=== PATIENT | male | born 1955 | race Caucasian/White ===

== ENCOUNTER 2021-11-30 14:44 | Inpatient (IN) ==
[2021-11-30 15:26] LABS: Basophils % 0.5 %; Eosinophils # 0.3 K/mcL (0.0-0.6); Eosinophils % 4.4 %; Hemoglobin 9.4 g/dL (12.9-16.9); Immature Granulocytes % 0.2 % (0-4); Lymphocytes # 1.4 K/mcL (0.6-4.6); Lymphocytes % 23.5 %; Mean Corpuscular HGB Conc 31.3 g/dL (31.6-35.5); Mean Corpuscular Hemoglobin 27.6 pg (28.0-33.3); Mean Corpuscular Volume 88.2 fL (83.0-100.0); Mean Platelet Volume 10.7 fL (9.4-12.4); Monocytes # 0.5 K/mcL (0.0-1.3); Monocytes % 8.6 %; Neutrophils # 3.8 K/mcL (1.6-8.9); Platelet Count 189 K/mcL (140-400); Red Cell Distribution Width 14.5 % (11.5-14.5); Segmented Neutrophils % 62.8 %
[2021-11-30 15:43] LABS: Calcium 8.2 mg/dL (8.6-10.3); Potassium 4.1 mEq/L (3.5-5.1)
[2021-11-30] MEDS ORDERED: Furosemide 40 MG/4 ML VIAL IVP ONE (15:46)
[2021-11-30 15:52] LABS: Troponin I 0.04 ng/mL (< 0.04)
[2021-11-30] MEDS ORDERED: Perflutren Lipid Microsphere 1.3 ML in 0.9 % Sodium Chloride 8.7 ML IVP PRN (16:58)
[2021-11-30] MEDS ORDERED: Ondansetron 4 MG/2 ML VIAL IVP PRN (17:06)
[2021-11-30] MEDS ORDERED: Melatonin 3 MG TABLET PO PRN (17:06)
[2021-11-30 20:14] LABS: Bilirubin,Urine Negative (Negative); Blood,Urine Trace (Negative); Clarity,Urine Clear (Clear); Color,Urine Colorless (Yellow); Glucose,Urine (UA) Normal (Normal); Ketones,Urine Negative (Negative); Leukocyte Esterase,Urine Negative (Negative); Mucus,Urine Few per lpf (None-Few); Nitrite,Urine Negative (Negative); Protein,Urine 100 mg/dL (Neg-Trace); RBC,Urine 0-3 per hpf (0-3); Specific Gravity,Urine 1.009 (1.010-1.025); Urobilinogen,Urine Normal (Normal); WBC,Urine 0-3 per hpf (0-3)
[2021-11-30] MEDS: Loratadine 10 MG TABLET PO SCH (20:30)
[2021-11-30] MEDS: carvediloL 6.25 MG TABLET PO SCH (20:30)
[2021-11-30] MEDS: Gabapentin 300 MG CAPSULE PO SCH (20:30)
[2021-11-30 23:03] LABS: Sodium, Urine 101.8 mEq/L
[2021-11-30] MEDS: *HR* Heparin 5,000 UNIT/ML VIAL SQ SCH (23:53)
[2021-12-01 02:57] LABS: Magnesium 1.8 mg/dL (1.6-2.6); Phosphorous 5.2 mg/dL (2.7-4.5); Potassium 4.1 mEq/L (3.5-5.1); Troponin I 0.05 ng/mL (< 0.04)
[2021-12-01] MEDS: Gabapentin 300 MG CAPSULE PO SCH ×2 (08:26→21:12)
[2021-12-01] MEDS: carvediloL 6.25 MG TABLET PO SCH ×2 (08:26→15:44)
[2021-12-01] MEDS: Furosemide 40 MG/4 ML VIAL IVP SCH ×2 (08:27→18:03)
[2021-12-01] MEDS: *HR* Heparin 5,000 UNIT/ML VIAL SQ SCH ×3 (08:27→23:59)
[2021-12-01 09:55] LABS: Uric Acid 12.4 mg/dL (2.3-7.6)
[2021-12-01 10:21] LABS: Hepatitis B Surface Antigen Nonreactive (Nonreactive)
[2021-12-01 10:49] LABS: Hepatitis B Core IgM Nonreactive (Nonreactive)
[2021-12-01 10:50] LABS: Hepatitis A Antibody IgM Nonreactive (Nonreactive); Hepatitis C Virus Antibody Nonreactive (Nonreactive)
[2021-12-01] MEDS: Aspirin Enteric Coated 81 MG Tablet PO SCH (11:52)
[2021-12-01] MEDS ORDERED: *HR* Dextrose 50 % in Water (Syg) 50 ML SYRINGE IVP PRN (12:21)
[2021-12-01] MEDS ORDERED: Dextrose 4 GM Chewable Tablets PO PRN ×2 (12:21)
[2021-12-01] MEDS ORDERED: D5% in Water 1,000 ML IVC PRN (12:21)
[2021-12-01] MEDS: Insulin LISPRO 300 UNITS/3 ML VIAL SUBQ SCH ×3 (13:04→21:04)
[2021-12-01] MEDS: Albumin 25% 25gram/100mL 25 GM/100 ML IV.SOLN IVPB SCH ×2 (15:44→23:59)
[2021-12-01] MEDS: Acetaminophen 325 MG TABLET PO PRN (21:11)
[2021-12-01] MEDS: Loratadine 10 MG TABLET PO SCH (21:12)
[2021-12-01] MEDS ORDERED: Ipratropium/Albuterol Neb 3 ML IH PRN (23:39)
[2021-12-02 05:43] LABS: Hematocrit 25.9 % (37.5-50.1); Mean Corpuscular HGB Conc 30.9 g/dL (31.6-35.5); Mean Corpuscular Hemoglobin 27.4 pg (28.0-33.3); Mean Corpuscular Volume 88.7 fL (83.0-100.0); Mean Platelet Volume 11.2 fL (9.4-12.4); Platelet Count 161 K/mcL (140-400); Red Blood Count 2.92 M/mcL (4.19-5.50); Red Cell Distribution Width 14.5 % (11.5-14.5); White Blood Count 5.3 K/mcL (4.3-11.1)
[2021-12-02 06:13] LABS: Calcium 8.1 mg/dL (8.6-10.3); Potassium 4.1 mEq/L (3.5-5.1)
[2021-12-02] MEDS: Levothyroxine 25 MCG TABLET PO SCH (06:31)
[2021-12-02] MEDS: Insulin LISPRO 300 UNITS/3 ML VIAL SUBQ SCH ×4 (07:16→20:45)
[2021-12-02] MEDS: Gabapentin 300 MG CAPSULE PO SCH ×2 (07:56→20:55)
[2021-12-02] MEDS: *HR* Heparin 5,000 UNIT/ML VIAL SQ SCH ×2 (07:56→15:55)
[2021-12-02] MEDS: Aspirin Enteric Coated 81 MG Tablet PO SCH (07:56)
[2021-12-02] MEDS: carvediloL 6.25 MG TABLET PO SCH ×2 (07:56→15:56)
[2021-12-02] MEDS: Albumin 25% 25gram/100mL 25 GM/100 ML IV.SOLN IVPB SCH ×2 (07:56→15:56)
[2021-12-02] MEDS: Furosemide 40 MG/4 ML VIAL IVP SCH ×2 (08:47→15:48)
[2021-12-02] MEDS: Acetaminophen 325 MG TABLET PO PRN (20:55)
[2021-12-02] MEDS: Loratadine 10 MG TABLET PO SCH (20:55)
[2021-12-02] MEDS ORDERED: NON-FORMULARY MEDICATION 1 EACH EACH (Atorvastatin Calcium [Lipitor] 80 MG Tablet) PO SCH (21:00)
[2021-12-03] MEDS: *HR* Heparin 5,000 UNIT/ML VIAL SQ SCH ×4 (00:06→23:47)
[2021-12-03] MEDS: Albumin 25% 25gram/100mL 25 GM/100 ML IV.SOLN IVPB SCH ×3 (00:07→17:05)
[2021-12-03 02:21] LABS: Basophils % 0.6 %; Eosinophils # 0.2 K/mcL (0.0-0.6); Eosinophils % 2.8 %; Hematocrit 24.4 % (37.5-50.1); Hemoglobin 7.6 g/dL (12.9-16.9); Immature Granulocytes % 0.6 % (0-4); Lymphocytes # 1.7 K/mcL (0.6-4.6); Lymphocytes % 32.2 %; Mean Corpuscular HGB Conc 31.1 g/dL (31.6-35.5); Mean Corpuscular Hemoglobin 27.3 pg (28.0-33.3); Mean Corpuscular Volume 87.8 fL (83.0-100.0); Monocytes # 0.5 K/mcL (0.0-1.3); Monocytes % 8.7 %; Platelet Count 154 K/mcL (140-400); Red Blood Count 2.78 M/mcL (4.19-5.50); Red Cell Distribution Width 14.4 % (11.5-14.5); Segmented Neutrophils % 55.1 %; White Blood Count 5.4 K/mcL (4.3-11.1)
[2021-12-03 02:38] LABS: Calcium 8.2 mg/dL (8.6-10.3); Potassium 4.2 mEq/L (3.5-5.1)
[2021-12-03 02:40] LABS: Albumin 3.8 g/dL (3.5-5.7); Albumin/Globulin Ratio 1.6 (1.1-2.2); Bilirubin,Total 0.7 mg/dL (0.3-1.0); Calcium 8.2 mg/dL (8.6-10.3); Globulin 2.4 g/dL (2.4-3.5); Potassium 4.2 mEq/L (3.5-5.1); Total Protein 6.2 g/dL (6.4-8.9)
[2021-12-03] MEDS: Levothyroxine 25 MCG TABLET PO SCH (05:57)
[2021-12-03] MEDS: Furosemide 40 MG/4 ML VIAL IVP SCH (08:43)
[2021-12-03] MEDS: Insulin LISPRO 300 UNITS/3 ML VIAL SUBQ SCH ×4 (09:05→21:15)
[2021-12-03] MEDS: carvediloL 6.25 MG TABLET PO SCH ×2 (09:06→17:05)
[2021-12-03] MEDS: Aspirin Enteric Coated 81 MG Tablet PO SCH (09:06)
[2021-12-03] MEDS: Gabapentin 300 MG CAPSULE PO SCH ×2 (09:06→19:53)
[2021-12-03] MEDS ORDERED: Furosemide 40 MG/4 ML VIAL IVP ONE (11:42)
[2021-12-03] MEDS: Loratadine 10 MG TABLET PO SCH (19:53)
[2021-12-04 02:17] LABS: Basophils % 0.5 %; Eosinophils # 0.4 K/mcL (0.0-0.6); Eosinophils % 6.4 %; Hematocrit 25.8 % (37.5-50.1); Immature Granulocytes % 0.5 % (0-4); Lymphocytes # 1.8 K/mcL (0.6-4.6); Lymphocytes % 31.6 %; Mean Corpuscular Hemoglobin 27.5 pg (28.0-33.3); Mean Corpuscular Volume 88.7 fL (83.0-100.0); Mean Platelet Volume 11.3 fL (9.4-12.4); Monocytes # 0.4 K/mcL (0.0-1.3); Neutrophils # 3.1 K/mcL (1.6-8.9); Platelet Count 162 K/mcL (140-400); Red Blood Count 2.91 M/mcL (4.19-5.50); Red Cell Distribution Width 14.4 % (11.5-14.5); White Blood Count 5.8 K/mcL (4.3-11.1)
[2021-12-04 02:30] LABS: Calcium 8.2 mg/dL (8.6-10.3); Potassium 4.3 mEq/L (3.5-5.1)
[2021-12-04 02:32] LABS: Albumin 3.8 g/dL (3.5-5.7); Albumin/Globulin Ratio 1.5 (1.1-2.2); Bilirubin,Total 0.7 mg/dL (0.3-1.0); Calcium 8.2 mg/dL (8.6-10.3); Globulin 2.5 g/dL (2.4-3.5); Potassium 4.3 mEq/L (3.5-5.1); Total Protein 6.3 g/dL (6.4-8.9)
[2021-12-04] MEDS: Levothyroxine 25 MCG TABLET PO SCH (05:13)
[2021-12-04] MEDS: carvediloL 6.25 MG TABLET PO SCH ×2 (07:46→17:57)
[2021-12-04] MEDS: Aspirin Enteric Coated 81 MG Tablet PO SCH (07:46)
[2021-12-04] MEDS: Gabapentin 300 MG CAPSULE PO SCH ×2 (07:47→21:10)
[2021-12-04] MEDS: *HR* Heparin 5,000 UNIT/ML VIAL SQ SCH ×3 (07:47→21:11)
[2021-12-04] MEDS: Insulin LISPRO 300 UNITS/3 ML VIAL SUBQ SCH ×4 (07:47→21:11)
[2021-12-04] MEDS ORDERED: *HR* Heparin 10,000 UNIT/10 ML VIAL IV PRN (10:10)
[2021-12-04] MEDS ORDERED: 0.9 % Sodium Chloride 250 ML IVC PRN (10:10)
[2021-12-04] MEDS ORDERED: Albumin 25% 25gram/100mL 25 GM/100 ML IV.SOLN IVPB PRN (10:10)
[2021-12-04] MEDS ORDERED: 0.9 % Sodium Chloride 1,000 ML PRIME SCH (10:15)
[2021-12-04] MEDS ORDERED: *HR* Heparin 5,000 UNIT/ML VIAL ONE (11:36)
[2021-12-04 14:29] LABS: Hepatitis B Surface Antigen Nonreactive (Nonreactive)
[2021-12-04 15:44] LABS: Hepatitis B Surface Antibody < 3.10 mIU/mL
[2021-12-04] MEDS: Loratadine 10 MG TABLET PO SCH (21:10)
[2021-12-05] MEDS: Levothyroxine 25 MCG TABLET PO SCH (05:32)
[2021-12-05 06:48] LABS: Calcium 8.5 mg/dL (8.6-10.3); Potassium 4.1 mEq/L (3.5-5.1)
[2021-12-05] MEDS: carvediloL 6.25 MG TABLET PO SCH ×2 (07:47→16:52)
[2021-12-05] MEDS: Aspirin Enteric Coated 81 MG Tablet PO SCH (07:47)
[2021-12-05] MEDS: Insulin LISPRO 300 UNITS/3 ML VIAL SUBQ SCH ×4 (07:47→21:14)
[2021-12-05] MEDS: Gabapentin 300 MG CAPSULE PO SCH ×2 (07:47→21:14)
[2021-12-05] MEDS: *HR* Heparin 5,000 UNIT/ML VIAL SQ SCH ×3 (07:49→23:42)
[2021-12-05] MEDS ORDERED: 0.9 % Sodium Chloride 250 ML IVC PRN (09:50)
[2021-12-05] MEDS ORDERED: *HR* Heparin 10,000 UNIT/10 ML VIAL IV PRN (09:50)
[2021-12-05] MEDS: Loratadine 10 MG TABLET PO SCH (21:14)
[2021-12-06] MEDS: Levothyroxine 25 MCG TABLET PO SCH (05:39)
[2021-12-06 05:56] LABS: Hematocrit 25.9 % (37.5-50.1); Mean Corpuscular HGB Conc 30.9 g/dL (31.6-35.5); Mean Corpuscular Hemoglobin 27.3 pg (28.0-33.3); Mean Corpuscular Volume 88.4 fL (83.0-100.0); Mean Platelet Volume 10.7 fL (9.4-12.4); Platelet Count 187 K/mcL (140-400); Red Blood Count 2.93 M/mcL (4.19-5.50); Red Cell Distribution Width 14.3 % (11.5-14.5); White Blood Count 6.3 K/mcL (4.3-11.1)
[2021-12-06 06:14] LABS: Calcium 8.5 mg/dL (8.6-10.3)
[2021-12-06] MEDS: Insulin LISPRO 300 UNITS/3 ML VIAL SUBQ SCH ×4 (07:59→21:42)
[2021-12-06] MEDS: Aspirin Enteric Coated 81 MG Tablet PO SCH (07:59)
[2021-12-06] MEDS: Gabapentin 300 MG CAPSULE PO SCH ×2 (07:59→21:41)
[2021-12-06] MEDS: carvediloL 6.25 MG TABLET PO SCH ×2 (07:59→17:09)
[2021-12-06] MEDS: *HR* Heparin 5,000 UNIT/ML VIAL SQ SCH ×2 (07:59→17:09)
[2021-12-06] MEDS ORDERED: 0.9 % Sodium Chloride 250 ML IVC PRN (08:00)
[2021-12-06] MEDS ORDERED: *HR* Heparin 10,000 UNIT/10 ML VIAL IV PRN ×2 (08:00)
[2021-12-06] MEDS: Loratadine 10 MG TABLET PO SCH (21:42)
[2021-12-07] MEDS: *HR* Heparin 5,000 UNIT/ML VIAL SQ SCH ×4 (00:08→23:46)
[2021-12-07 03:31] LABS: Calcium 8.7 mg/dL (8.6-10.3); Potassium 3.8 mEq/L (3.5-5.1)
[2021-12-07] MEDS: Levothyroxine 25 MCG TABLET PO SCH (05:15)
[2021-12-07] MEDS: Gabapentin 300 MG CAPSULE PO SCH ×2 (07:54→21:15)
[2021-12-07] MEDS: Aspirin Enteric Coated 81 MG Tablet PO SCH (07:54)
[2021-12-07] MEDS: carvediloL 6.25 MG TABLET PO SCH ×2 (07:54→16:41)
[2021-12-07] MEDS: Insulin LISPRO 300 UNITS/3 ML VIAL SUBQ SCH ×4 (07:57→20:51)
[2021-12-07 20:40] LABS: Adenovirus F 40/41 PCR Not detected (Not detect); Astrovirus PCR Not detected (Not detect); C.difficile Toxin A/B Gene PCR Not detected (Not detect); Campylobacter by PCR Not detected (Not detect); Cryptosporidium by PCR Not detected (Not detect); Cyclospora cayetanensis PCR Not detected (Not detect); Entamoeba histolytica PCR Not detected (Not detect); Enteroaggregative E.coli(EAEC) Not detected (Not detect); Enteropathogenic E.coli(EPEC) DETECTED (Not detect); Enterotoxigenic E.coli (ETEC) Not detected (Not detect); Giardia lamblia PCR Not detected (Not detect); Norovirus GI/GII PCR Not detected (Not detect); Plesiomonas shigelloides PCR Not detected (Not detect); Rotavirus A PCR Not detected (Not detect); Salmonella PCR Not detected (Not detect); Sapovirus PCR Not detected (Not detect); Shig/EnteroinvasiveE coli EIEC Not detected (Not detect); Shigalike tox-prod E coli STEC Not detected (Not detect); Vibrio PCR Not detected (Not detect); Vibrio cholerae PCR Not detected (Not detect); Yersinia enterocolitica PCR Not detected (Not detect)
[2021-12-07] MEDS: Loratadine 10 MG TABLET PO SCH (21:15)
[2021-12-08] MEDS: Levothyroxine 25 MCG TABLET PO SCH (05:28)
[2021-12-08 05:56] LABS: Basophils % 0.4 %; Eosinophils # 0.5 K/mcL (0.0-0.6); Eosinophils % 6.3 %; Hematocrit 27.8 % (37.5-50.1); Hemoglobin 8.6 g/dL (12.9-16.9); Immature Granulocytes % 0.6 % (0-4); Lymphocytes # 1.6 K/mcL (0.6-4.6); Lymphocytes % 18.6 %; Mean Corpuscular HGB Conc 30.9 g/dL (31.6-35.5); Mean Corpuscular Hemoglobin 27.6 pg (28.0-33.3); Mean Corpuscular Volume 89.1 fL (83.0-100.0); Mean Platelet Volume 10.4 fL (9.4-12.4); Monocytes # 0.7 K/mcL (0.0-1.3); Monocytes % 8.6 %; Neutrophils # 5.6 K/mcL (1.6-8.9); Platelet Count 257 K/mcL (140-400); Red Blood Count 3.12 M/mcL (4.19-5.50); Red Cell Distribution Width 14.4 % (11.5-14.5); Segmented Neutrophils % 65.5 %; White Blood Count 8.5 K/mcL (4.3-11.1)
[2021-12-08 06:19] LABS: Potassium 3.9 mEq/L (3.5-5.1)
[2021-12-08 06:20] LABS: Albumin 3.6 g/dL (3.5-5.7); Albumin/Globulin Ratio 1.2 (1.1-2.2); Bilirubin,Total 0.8 mg/dL (0.3-1.0); Potassium 3.9 mEq/L (3.5-5.1); Total Protein 6.6 g/dL (6.4-8.9)
[2021-12-08] MEDS: *HR* Heparin 5,000 UNIT/ML VIAL SQ SCH ×3 (08:20→23:25)
[2021-12-08] MEDS: Insulin LISPRO 300 UNITS/3 ML VIAL SUBQ SCH ×4 (08:21→21:02)
[2021-12-08] MEDS: Gabapentin 300 MG CAPSULE PO SCH ×2 (08:24→21:02)
[2021-12-08] MEDS: carvediloL 6.25 MG TABLET PO SCH ×2 (08:24→17:15)
[2021-12-08] MEDS ORDERED: 0.9 % Sodium Chloride 250 ML IVC PRN (08:54)
[2021-12-08] MEDS ORDERED: *HR* Heparin 10,000 UNIT/10 ML VIAL IV PRN (08:54)
[2021-12-08] MEDS: Loratadine 10 MG TABLET PO SCH (21:02)
[2021-12-09] MEDS: Levothyroxine 25 MCG TABLET PO SCH (06:07)
[2021-12-09 06:42] LABS: Basophils # 0.1 K/mcL (0.0-0.2); Basophils % 0.5 %; Eosinophils # 0.5 K/mcL (0.0-0.6); Eosinophils % 5.6 %; Hematocrit 28.5 % (37.5-50.1); Hemoglobin 8.9 g/dL (12.9-16.9); Immature Granulocytes % 0.4 % (0-4); Lymphocytes # 1.6 K/mcL (0.6-4.6); Lymphocytes % 17.5 %; Mean Corpuscular HGB Conc 31.2 g/dL (31.6-35.5); Mean Corpuscular Hemoglobin 27.7 pg (28.0-33.3); Mean Corpuscular Volume 88.8 fL (83.0-100.0); Mean Platelet Volume 10.4 fL (9.4-12.4); Monocytes # 0.9 K/mcL (0.0-1.3); Monocytes % 9.2 %; Neutrophils # 6.2 K/mcL (1.6-8.9); Platelet Count 284 K/mcL (140-400); Red Blood Count 3.21 M/mcL (4.19-5.50); Red Cell Distribution Width 14.1 % (11.5-14.5); Segmented Neutrophils % 66.8 %; White Blood Count 9.3 K/mcL (4.3-11.1)
[2021-12-09 06:59] LABS: Calcium 8.9 mg/dL (8.6-10.3)
[2021-12-09] MEDS: Insulin LISPRO 300 UNITS/3 ML VIAL SUBQ SCH ×4 (07:09→20:38)
[2021-12-09] MEDS: *HR* Heparin 5,000 UNIT/ML VIAL SQ SCH ×3 (07:14→23:11)
[2021-12-09] MEDS: Gabapentin 300 MG CAPSULE PO SCH ×2 (07:19→20:35)
[2021-12-09] MEDS: carvediloL 6.25 MG TABLET PO SCH ×2 (07:19→16:33)
[2021-12-09 07:59] LABS: Prothrombin Time 11.4 Seconds (9.4-12.1)
[2021-12-09] MEDS ORDERED: Heparin 1,000 UNITS/500 mL 500 ML ONE (11:08)
[2021-12-09] MEDS ORDERED: *HR* FentaNYL (PF) 100 MCG/2 ML VIAL IVP ONE (13:01)
[2021-12-09] MEDS ORDERED: ceFAZolin 2,000 MG in D5% in Water 100 ML IVPB ONE (13:01)
[2021-12-09] MEDS ORDERED: *HR* Midazolam HCl 2 MG/2 ML VIAL IVP ONE (13:01)
[2021-12-09] MEDS ORDERED: *HR* FentaNYL (PF) 100 MCG/2 ML VIAL ONE (13:19)
[2021-12-09] MEDS ORDERED: *HR* Midazolam HCl 2 MG/2 ML VIAL ONE (13:19)
[2021-12-09] MEDS ORDERED: *HR* Heparin 5,000 UNIT/ML VIAL ONE (13:33)
[2021-12-09] MEDS: ceFAZolin 1,000 MG in 0.9 % Sodium Chloride Mini Bag 100 ML IVPB SCH ×2 (13:37→15:39)
[2021-12-09] MEDS ORDERED: CeFAZolin 2,000 MG/120 ML BAG IVPB ONE (15:35)
[2021-12-09] MEDS: Loratadine 10 MG TABLET PO SCH (20:35)
[2021-12-10 04:48] VITALS: PULSE 77
[2021-12-10] MEDS: Levothyroxine 25 MCG TABLET PO SCH (05:33)
[2021-12-10] MEDS: Insulin LISPRO 300 UNITS/3 ML VIAL SUBQ SCH ×2 (08:06→12:46)
[2021-12-10] MEDS: *HR* Heparin 5,000 UNIT/ML VIAL SQ SCH (08:06)
[2021-12-10] MEDS: carvediloL 6.25 MG TABLET PO SCH (08:07)
[2021-12-10] MEDS: Gabapentin 300 MG CAPSULE PO SCH (08:07)
[2021-12-10] MEDS ORDERED: 0.9 % Sodium Chloride 250 ML IVC PRN (08:36)
[2021-12-10] MEDS ORDERED: *HR* Heparin 10,000 UNIT/10 ML VIAL IV PRN ×2 (08:36)
[2021-12-10] MEDS ORDERED: Insulin DETEMIR 100 UNIT/ML X5UNITS SUBQ SCH (09:00)
[2021-12-10 10:49] VITALS: BP 147/72; TEMP 97.7; O2SAT 97
[2021-12-10] MEDS ORDERED: Gabapentin 300 MG CAPSULE PO SCH (21:00)
== END 2021-12-10 13:15 | disposition home health service (06) | DRG 291 ==
LOC: 2ANU 14:44 → EMEROOARM 14:44 → 2ANU 17:40 → SUATTDRO 18:25
PROVIDERS: ADMIT Internal Medicine; ATTEND Internal Medicine
PROC: IRPERMA (2021-12-09 12:00)

== ENCOUNTER 2022-04-24 09:04 | Observation (INO) ==
[2022-04-24] MEDS ORDERED: Iopamidol - 370 500 ML MLS IVP ONE (09:31)
[2022-04-24 09:44] LABS: Basophils # 0.1 K/mcL (0.0-0.2); Eosinophils % 13.8 %; Hemoglobin 10.9 g/dL (12.9-16.9); Immature Granulocytes % 0.1 % (0-4); Lymphocytes # 1.7 K/mcL (0.6-4.6); Lymphocytes % 23.6 %; Mean Corpuscular HGB Conc 31.1 g/dL (31.6-35.5); Mean Corpuscular Hemoglobin 28.3 pg (28.0-33.3); Mean Corpuscular Volume 90.9 fL (83.0-100.0); Mean Platelet Volume 10.6 fL (9.4-12.4); Monocytes # 0.6 K/mcL (0.0-1.3); Monocytes % 7.8 %; Neutrophils # 3.9 K/mcL (1.6-8.9); Platelet Count 185 K/mcL (140-400); Red Blood Count 3.85 M/mcL (4.19-5.50); Red Cell Distribution Width 14.7 % (11.5-14.5); Segmented Neutrophils % 53.7 %; White Blood Count 7.3 K/mcL (4.3-11.1)
[2022-04-24 10:01] LABS: Troponin I < 0.03 ng/mL (< 0.04)
[2022-04-24 11:27] LABS: Alanine Aminotransferase 20 Units/L (7-52); Albumin 3.8 g/dL (3.5-5.7); Albumin/Globulin Ratio 1.2 (1.1-2.2); Alkaline Phosphatase 121 Units/L (34-104); Aspartate Amino Transferase 27 Units/L (13-39); Bilirubin,Direct 0.2 mg/dL (0.0-0.2); Bilirubin,Indirect 0.7 mg/dL (0.0-1.0); Bilirubin,Total 0.9 mg/dL (0.3-1.0); Globulin 3.1 g/dL (2.4-3.5); Lipase 54 Units/L (11-82); Total Protein 6.9 g/dL (6.4-8.9)
[2022-04-24 11:28] LABS: BUN/Creatinine Ratio 16 (6-26); Blood Urea Nitrogen 38 mg/dL (8-23); Calcium 8.4 mg/dL (8.6-10.3); Carbon Dioxide 22 mEq/L (23-29); Chloride 104 mEq/L (98-107); Glucose 161 mg/dL (70-105); Osmolality,Calculated 301 (280-300); Sodium 139 mEq/L (136-145)
[2022-04-24] MEDS ORDERED: Aspirin 325 MG TABLET PO ONE (12:37)
[2022-04-24] MEDS ORDERED: Naloxone 0.4 MG/ML INJ IVP PRN (13:34)
[2022-04-24] MEDS ORDERED: *HR* Dextrose 50 % in Water (Syg) 50 ML SYRINGE IVP PRN (13:35)
[2022-04-24] MEDS ORDERED: Dextrose Gel 15 GM/37.5 ML TUBE PO PRN ×2 (13:35)
[2022-04-24] MEDS ORDERED: D5% in Water 1,000 ML IVC PRN (13:35)
[2022-04-24] MEDS: carvediloL 6.25 MG TABLET PO SCH (19:56)
[2022-04-24] MEDS: *HR* Heparin 5,000 UNIT/ML VIAL SQ SCH (19:56)
[2022-04-24] MEDS: Insulin LISPRO 300 UNITS/3 ML VIAL SUBQ SCH (19:56)
[2022-04-24] MEDS ORDERED: Insulin LISPRO 300 UNITS/3 ML VIAL SUBQ SCH (21:00)
[2022-04-24] MEDS ORDERED: Gabapentin 300 MG CAPSULE PO SCH (21:00)
[2022-04-24 21:32] LABS: Estimated Average Glucose 220 mg/dl; Hemoglobin A1C 9.3 %
[2022-04-25] MEDS: *HR* Heparin 5,000 UNIT/ML VIAL SQ SCH (05:28)
[2022-04-25 05:30] LABS: Basophils # 0.1 K/mcL (0.0-0.2); Basophils % 1.1 %; Eosinophils # 0.9 K/mcL (0.0-0.6); Eosinophils % 12.2 %; Hematocrit 34.5 % (37.5-50.1); Hemoglobin 10.6 g/dL (12.9-16.9); Immature Granulocytes % 0.3 % (0-4); Lymphocytes # 1.4 K/mcL (0.6-4.6); Lymphocytes % 19.5 %; Mean Corpuscular HGB Conc 30.7 g/dL (31.6-35.5); Mean Corpuscular Hemoglobin 27.8 pg (28.0-33.3); Mean Corpuscular Volume 90.6 fL (83.0-100.0); Mean Platelet Volume 10.5 fL (9.4-12.4); Monocytes # 0.6 K/mcL (0.0-1.3); Monocytes % 8.3 %; Neutrophils # 4.3 K/mcL (1.6-8.9); Platelet Count 189 K/mcL (140-400); Red Blood Count 3.81 M/mcL (4.19-5.50); Segmented Neutrophils % 58.6 %; White Blood Count 7.4 K/mcL (4.3-11.1)
[2022-04-25 05:51] LABS: Calcium 8.4 mg/dL (8.6-10.3); Chol/HDL Ratio 3.3 (0-4.9); Magnesium 2.1 mg/dL (1.6-2.6); Phosphorous 4.3 mg/dL (2.7-4.5); Potassium 4.7 mEq/L (3.5-5.1)
[2022-04-25] MEDS: Insulin LISPRO 300 UNITS/3 ML VIAL SUBQ SCH ×3 (05:56→12:44)
[2022-04-25] MEDS ORDERED: Regadenoson 0.4 MG/5 ML SYRINGE IVP ONE (06:21)
[2022-04-25] MEDS ORDERED: Levothyroxine 25 MCG TABLET PO SCH (06:30)
[2022-04-25 06:42] VITALS: O2SAT 96
[2022-04-25] MEDS ORDERED: Patient Taking Own Medication 1 EACH PO SCH (09:00)
[2022-04-25] MEDS ORDERED: Furosemide 40 MG TABLET PO SCH (09:00)
[2022-04-25] MEDS ORDERED: Insulin DETEMIR 100 UNIT/ML X5UNITS SUBQ SCH (09:00)
[2022-04-25] MEDS ORDERED: Loratadine 10 MG TABLET PO SCH (09:00)
[2022-04-25] MEDS ORDERED: Aspirin Enteric Coated 81 MG Tablet PO SCH (09:00)
[2022-04-25] MEDS: carvediloL 6.25 MG TABLET PO SCH (09:43)
[2022-04-25 10:36] VITALS: TEMP 97.6
[2022-04-25] MEDS ORDERED: Calcium Acetate 667 MG CAPSULE PO SCH (12:00)
[2022-04-25 14:20] VITALS: BP 117/67; PULSE 70
== END 2022-04-25 16:11 | disposition home or self-care (01) ==
LOC: EMEROOARM 09:04 → 3BNU 09:04
PROVIDERS: ADMIT Student in an Organized Health Care Education/Training Program; ATTEND Student in an Organized Health Care Education/Training Program